=== PATIENT | female | born 1970 | race African-American/Black ===

== ENCOUNTER 2016-09-24 22:36 | Emergency (ER) | payer OTHER ==
[~2016-09-24] VITALS: Ht 160 cm; Wt 93.0 kg
[2016-09-24] MEDS ORDERED: LISINOPRIL10 MG PO (22:54)
[2016-09-24] MEDS ORDERED: HYDROCHLOROTH12.5 M1 PO (22:55)
[2016-09-25] MEDS ORDERED: TRAMADOL 50 MG50 MG PO (02:46)
[2016-09-25 03:19] VITALS: BP 140/80
== END 2016-09-25 02:48 | disposition home or self-care (01) ==
LOC: ER 22:36
DX: S01.21XA Laceration without foreign body of nose, initial encounter (principal); S51.011A Laceration without foreign body of right elbow, initial encounter; Y04.2XXA Assault by strike against or bumped into by another person, initial encounter; Y93.89 Activity, other specified; Y92.89 Other specified places as the place of occurrence of the external cause; Y99.8 Other external cause status